=== PATIENT | female | born 1980 | race Caucasian/White ===

== ENCOUNTER 2017-07-13 09:43 | Emergency (ER) | payer OTHER | END 2017-07-14 07:11 | disposition left against medical advice (07) | LOC: E/R 07-14 07:11 | DX: Z53.21 Procedure and treatment not carried out due to patient leaving prior to being seen by health care provider (principal) ==

== ENCOUNTER 2018-05-01 02:34 | Inpatient (IN) | payer OTHER ==
[2018-05-01] MEDS ORDERED: ACETAMINOPHEN 325 MG TAB PO (05:30)
[2018-05-01] MEDS ORDERED: PENDING SANTYL ORDER FOR WOUND CARE XX (05:30)
[2018-05-01] MEDS: CEFTRIAXONE 1 GM/50 ML (PMX) 50 ML IVPB (06:42)
[2018-05-01] MEDS: SOD CHLORIDE 0.9% 1,000 ML IV (06:43)
[2018-05-01] MEDS: VANCOMYCIN 1 GM 250 ML IVPB ×2 (06:46→18:57)
[2018-05-01] MEDS ORDERED: VANCOMYCIN IV PER PHARMACY XX (09:00)
[2018-05-01 09:59] LABS: BLOOD UREA NITROGEN 11 mg/dl (7-20)
[2018-05-02] MEDS: SOD CHLORIDE 0.9% 1,000 ML IV (01:30)
[2018-05-02 04:58] LABS: ADD MAN DIFF? NO
[2018-05-02 05:04] LABS: BASOPHIL # 0.1 10^3/ul (0.0-0.1); BASOPHILS % 0.7 % (0.0-2.0); EOSINOPHILS # 0.2 10^3/ul (0.0-0.5); EOSINOPHILS % 2.6 % (0.0-7.0); HEMATOCRIT 32.8 % (37.0-47.0); HEMOGLOBIN 10.3 g/dl (12.0-16.0); LYMPHOCYTES % 26.3 % (15.0-51.0); MEAN CORPUSCULAR HGB CONC 31.4 g/dl (32.0-37.0); MEAN CORPUSCULAR VOLUME 85.9 fl (82.0-101.0); MONOCYTE # 0.5 10^3/ul (0.3-0.9); MONOCYTES % 6.4 % (0.0-11.0); NEUTROPHIL # 4.9 10^3/ul (1.6-7.5); NEUTROPHILS % 63.6 % (39.0-77.0); PLATELET COUNT 342 10^3/UL (140-415); RED BLOOD COUNT 3.82 10^6/ul (4.20-5.40)
[2018-05-02 05:04] LABS: WHITE BLOOD COUNT 7.7 10^3/ul (4.8-10.8)
[2018-05-02 05:51] LABS: ANION GAP 7 (5-13); BLOOD UREA NITROGEN 13 mg/dl (7-20); CALCIUM 8.7 mg/dl (8.4-10.2); CARBON DIOXIDE 27 mmol/L (21-31); CHLORIDE 107 mmol/L (97-110); CREATININE 0.73 mg/dl (0.44-1.00); GLUCOSE 88 mg/dl (70-220); POTASSIUM 4.3 mmol/L (3.5-5.1); SODIUM 141 mmol/L (135-144)
== END 2018-05-02 05:30 | disposition left against medical advice (07) | DRG 603 ==
LOC: PP2 02:34
PROVIDERS: Internal Medicine Nephrology
DX: L02.414 Cutaneous abscess of left upper limb (principal); L02.413 Cutaneous abscess of right upper limb; I10 Essential (primary) hypertension; F17.200 Nicotine dependence, unspecified, uncomplicated
CPT/HCPCS: 80048; 82565; 84520; 85025; 90686